=== PATIENT | male | born 1985 | race Caucasian/White ===

== ENCOUNTER 2018-01-30 22:59 | Observation (INO) ==
[2018-01-31] MEDS ORDERED: Ibuprofen 800 MG TABLET PO PRN (00:55)
--- NOTE | 2018-01-31 01:03 | Internal Med History&Physical ---
Date of Encounter: 01/31/18 Time of Encounter: 01: Internal Medicine - H&P: HPI Chief complaint: Abdominal pain Admitted From: Intrahospital Transfer Plans for Post Hospital Care: Home History of present illness: Ian Dumont is a 32-year-old man with a history of bipolar disorder and PTSD prior suicide attempts, history of illicit drug use, an active smoker and alcohol consumer coming in on transfer from [place] emergency room where he was taking 2 after having labs drawn in an urgent care center for abdominal pain and was seen to have a significant elevation in his LFTs. Over there is CT scan was done which revealed gallbladder wall edema and subtle pericholecystic infiltration as well as infiltration in the gerson hepatis region with some extension into the right anterior perirenal space and subtle infiltration suggested around the pancreatic head with minor reactive periportal lymphadenopathy. It remained unclear if this was acute cholecystitis or an acute pancreatitis however his serum lipase was within normal limits and surgery was consulted with the recommendation that he be admitted and will be seen in the morning on consultation. On arrival here the patient reports that he started feeling unwell 3 days ago with mid-abdominal pain and darker urine. He also confirms that his stool was somewhat electric power superintendent than usual but has remained constipated since then. He says he has been nauseated since then and lost his appetite. The pain has been dull but not severe enough in intensity for him to request pain medications. He denies having dysuria, fever or chills at any time. He says no one else at home is sick. Past Med Surg Social Fam HX - Past Medical History Medical history: asthma, COPD, hypertension Psychiatric history: anxiety, bipolar, prior suicide attempt, previous psychiatric hospitalization - Past Surgical History Surgical History: orthopedic, other Additional surgical history: 5 pins and wire in right shoulder on 04/28 and tendon in right finger. - Social History Smoking Status: Current every day smoker Smokeless Tobacco Status: No Alcohol use: occasionally Drug use: marijuana, prescription drug abuse Internal Medicine - H&P: Meds Fluticasone Propionate Nasal [Flonase] 50 mcg NS BID 05/28/15 [History] Lisinopril [Zestril] 5 mg PO DAILY 05/28/15 [History] Loratidine 10 mg PO DAILY 05/28/15 [History] Ibuprofen 800 mg PO 2-3XD PRN #30 tablet 07/18/17 [Rx] Lidocaine Patch [Lidoderm 5% patch] 1 each TP DAILY #7 adh..patch 07/18/17 [Rx] Albuterol Sulfate [Ventolin Hfa] 18 gm IH DAILY 01/30/18 [History] HydrOXYzine Pamoate [Vistaril] 20 mg PO DAILY 01/30/18 [History] Metoprolol [Lopressor] 25 mg PO BID 01/30/18 [History] Montelukast [Singulair] 10 mg PO DAILY 01/30/18 [History] 3 Allergy/AdvReac Type Severity Reaction Status Date / Time No Known Allergies Allergy Verified 01/30/18 20:05 All Systems PM: A 10-system review of systems was performed and is negative for pertinent findings except as documented above in the HPI. - Constitutional Exam: Vitals: Reviewed General: Well-developed white male lying comfortably in bed in no acute distress Skin: Warm and supple HEENT: Moist mucous membranes. No conjunctivae pallor. Mild scleral icterus noted around the periphery. Neck: No lymphadenopathy. No JVD. No carotid bruits. No palpable thyroid. Chest: Normal thoracic expansion. Normal breath sounds. Clear to auscultation. Heart: Normal S1 & S2; rhythmic. No rubs or murmurs. Abdomen: Non-distended, soft and non-tender to palpation. No peritoneal reaction. Liver is normal in size. Spleen is not palpable. Marie sign negative. Extremities: No clubbing, cyanosis or edema. No calf tenderness. Normal distal pulses. Neurological: Awake, alert and oriented to person, place and time. No focal deficits. Psych: Affect appropriate. - Assessment and plan (1) Abdominal pain Current Visit: Yes Status: Acute Assessment and plan: Unclear etiology; differentials include acute viral more likely (Hep A) or toxic (medication/illicit substance) hepatitis, acute cholecystitis and less likely acute pancreatitis given the normal serum lipase. Will obtain a viral hepatic panel, trend LFTs, keep NPO and obtain a liver ultrasound in the morning. Surgery and GI consults to be requested if needed. UDS is clean. IV LR to run at 200ml/hr for 2L and pain control meds ordered. With the pericholecystic fluid and wall edema, will obtain blood cultures but hold off on continuing empiric antibiotics as he presents no signs of systemic illness ( leukocytosis, fever, chills, tachycardia) and negative Ninole sign. Given the value of his LFTs, if this were due to cholecystitis he would be in severe pain and have systemic signs of illness. For now frequent abdominal exams pending liver ultrasound. Qualifiers: Abdominal location: periumbilical Qualified Code(s): R10.33 - Periumbilical pain (2) Abnormal LFTs Current Visit: Yes Status: Acute Assessment and plan: Concerning for acute hepatitis or cholecystitis. Further work up as indicated above. (3) Hypertension Current Visit: Yes Status: Chronic Assessment and plan: Resume Lisinopril when feasible. Monitor BP values for now. If needed will administer IV antihypertensive. Qualifiers: Hypertension type: essential hypertension Qualified Code(s): I10 - Essential (primary) hypertension (4) Mood disorder Current Visit: Yes Status: Chronic Assessment and plan: Patient appears clinically stable at this time. Home meds can be resumed once clear for PO. (5) DVT prophylaxis Current Visit: Yes Status: Acute Assessment and plan: Heparin subcutaneous indicated. - Time Spent With Patient Total time spent is greater than 50% in coordination of care (as documented) at patient's floor/unit and/or counseling patient: Greater than 35 minutes
[2018-01-31] MEDS: *HR* Heparin 5,000 UNIT/ML VIAL SQ SCH ×3 (06:25→21:40)
[2018-01-31 06:49] LABS: Basophils % 0.7 %; Eosinophils # 0.1 K/mcL (0.0-0.6); Eosinophils % 1.7 %; Hematocrit 47.2 % (37.5-50.1); Immature Granulocytes % 0.6 % (0-4); Lymphocytes # 1.9 K/mcL (0.6-4.6); Lymphocytes % 35.3 %; Mean Corpuscular HGB Conc 33.9 g/dL (31.6-35.5); Mean Corpuscular Volume 88.4 fL (83.0-100.0); Mean Platelet Volume 9.9 fL (9.4-12.4); Monocytes # 0.8 K/mcL (0.0-1.3); Monocytes % 14.2 %; Neutrophils # 2.6 K/mcL (1.6-8.9); Platelet Count 186 K/mcL (140-400); Red Blood Count 5.34 M/mcL (4.19-5.50); Red Cell Distribution Width 13.5 % (11.5-14.5); Segmented Neutrophils % 47.5 %
[2018-01-31 07:26] LABS: Platelet Estimate Normal (Normal); Reactive Lymphocytes Present (Not Present)
[2018-01-31 07:30] LABS: Alanine Aminotransferase > 500 Units/L (7-52); Albumin 3.1 g/dL (3.5-5.7); Albumin/Globulin Ratio 1.1 (1.1-2.2); Alkaline Phosphatase 124 Units/L (34-104); Aspartate Amino Transferase 844 Units/L (13-39); BUN/Creatinine Ratio 12 (6-26); Bilirubin,Direct 2.9 mg/dL (0.0-0.2); Bilirubin,Indirect 1.3 mg/dL (0.0-1.2); Bilirubin,Total 4.2 mg/dL (0.3-1.0); Blood Urea Nitrogen 10 mg/dL (6-20); Calcium 8.3 mg/dL (8.6-10.3); Carbon Dioxide 24 mEq/L (23-29); Chloride 110 mEq/L (98-107); Creatine Kinase 74 Units/L (30-223); Globulin 2.8 g/dL (2.4-3.5); Glucose 107 mg/dL (70-105); Osmolality,Calculated 286 (280-300); Potassium 3.8 mEq/L (3.5-5.1); Sodium 138 mEq/L (136-145); Total Protein 5.9 g/dL (6.4-8.9); eGFR For Non-African Americans > 60 (> 60)
[2018-01-31] MEDS: Loratadine 10 MG TABLET PO SCH (08:51)
[2018-01-31] MEDS: Fluticasone Propionate Nasal 50 MCG/SPRAY BOTTLE NS SCH ×2 (08:52→21:40)
[2018-01-31 10:57] LABS: Acetaminophen < 10 mcg/mL (10-20); Salicylate < 2.5 mg/dL (15.0-30.0)
[2018-01-31] MEDS ORDERED: 0.9 % Sodium Chloride 1,000 ML IVC SCH (13:15)
[2018-01-31 13:20] LABS: Amphetamine Screen,Urine Negative ng/mL (Cutoff=1000); Barbiturate Screen,Urine Negative ng/mL (Cutoff=200); Benzodiazepines Screen,Urine Negative ng/mL (Cutoff=200); Cannabinoid Screen,Urine Negative ng/mL (Cutoff = 50); Cocaine Screen,Urine Negative ng/mL (Cutoff= 300); Opiate Screen,Urine Negative ng/mL (Cutoff=300); Phencyclidine Screen,Urine Negative ng/mL (Cutoff=25)
[2018-01-31 14:16] LABS: Hepatitis B Core IgM Nonreactive (Nonreactive); Hepatitis B Surface Antigen Nonreactive (Nonreactive); Hepatitis C Virus Antibody Nonreactive (Nonreactive)
[2018-01-31 14:45] LABS: Hepatitis A Antibody IgM Reactive (Nonreactive)
--- NOTE | 2018-01-31 15:21 | Event Note ---
Date of Encounter: 01/31/18 Time of Encounter: 15:09 Pt's hepatitis panel positive for hepatitis IgM Ab. HEP A fecal-oral transmission, is usually self limiting. Will continue with IVF, antiemetic, and prn pain control. Pt strongly advised on frequent hand washing, especially after using the rest room.
[2018-01-31] MEDS: Nicotine 21 MG PATCH.TD24 TD SCH (21:40)
[2018-02-01] MEDS: *HR* Heparin 5,000 UNIT/ML VIAL SQ SCH ×2 (04:26→13:07)
[2018-02-01] MEDS ORDERED: Ondansetron 4 MG/2 ML VIAL IVP PRN (04:28)
[2018-02-01] MEDS: Loratadine 10 MG TABLET PO SCH (08:25)
[2018-02-01] MEDS: Nicotine 21 MG PATCH.TD24 TD SCH (08:25)
[2018-02-01] MEDS: Fluticasone Propionate Nasal 50 MCG/SPRAY BOTTLE NS SCH (08:26)
[2018-02-01 10:36] LABS: Basophils # 0.1 K/mcL (0.0-0.2); Basophils % 0.9 %; Eosinophils # 0.1 K/mcL (0.0-0.6); Eosinophils % 1.8 %; Hematocrit 46.3 % (37.5-50.1); Hemoglobin 15.9 g/dL (12.9-16.9); Immature Granulocytes % 0.5 % (0-4); Lymphocytes # 1.2 K/mcL (0.6-4.6); Lymphocytes % 21.4 %; Mean Corpuscular HGB Conc 34.3 g/dL (31.6-35.5); Mean Corpuscular Hemoglobin 29.8 pg (28.0-33.3); Mean Corpuscular Volume 86.7 fL (83.0-100.0); Mean Platelet Volume 9.6 fL (9.4-12.4); Monocytes # 0.8 K/mcL (0.0-1.3); Monocytes % 13.5 %; Neutrophils # 3.5 K/mcL (1.6-8.9); Platelet Count 187 K/mcL (140-400); Red Blood Count 5.34 M/mcL (4.19-5.50); Segmented Neutrophils % 61.9 %
[2018-02-01 11:06] LABS: Platelet Estimate Normal (Normal)
[2018-02-01 11:10] LABS: Alanine Aminotransferase > 500 Units/L (7-52); Albumin 3.3 g/dL (3.5-5.7); Albumin/Globulin Ratio 1.1 (1.1-2.2); Alkaline Phosphatase 145 Units/L (34-104); Aspartate Amino Transferase 956 Units/L (13-39); BUN/Creatinine Ratio 11 (6-26); Bilirubin,Total 4.7 mg/dL (0.3-1.0); Blood Urea Nitrogen 9 mg/dL (6-20); Calcium 8.8 mg/dL (8.6-10.3); Carbon Dioxide 24 mEq/L (23-29); Chloride 107 mEq/L (98-107); Glucose 137 mg/dL (70-105); Osmolality,Calculated 283 (280-300); Sodium 136 mEq/L (136-145); Total Protein 6.3 g/dL (6.4-8.9); eGFR For Non-African Americans > 60 (> 60)
[2018-02-01 11:28] VITALS: BP 118/75
--- NOTE | 2018-02-01 11:47 | Discharge Summary ---
- NOTES TO OUTPATIENT PROVIDER Notes to Outpatient Provider: PCP in 5 to 7 days Orders not resulted at time of discharge: Pending orders Pt will need follow up labs out pt 02/15/2018 CMP [Comprehensive Metabolic Panel] 03/01/2018 CMP [Comprehensive Metabolic Panel] Date of Encounter: 02/01/18 Time of Encounter: 11:43 - Discharge Diagnosis (1) Hepatitis A virus infection Priority: Primary Status: Acute Assessment and Plan: Patient IgM Ab positive. LFT's elevated on admission. Pt states symptoms much improved. Scleral icterus resolved and no notable jaundice on physical exam. Discussed case with ID and states since infection is self limiting continue with supportive care. Continue fluids and pt instructed on proper hand hygiene. If jaundice recurs and or eyes turn yellow again, pt instructed to come in to ED for further evaluation. Pt acknowledges understanding of current medical status and agreeable to treatment plan. Qualifiers: Qualified Code(s): B15.9 - Hepatitis A without hepatic coma (2) Elevated transaminase level Priority: Primary Status: Acute Assessment and Plan: Pt will need repeat lab work in 2 to 4weeks to ensure complete resolution of elevated LFT's. (3) Abdominal pain Priority: Primary Status: Acute Assessment and Plan: Resolved. Qualifiers: Abdominal location: periumbilical Qualified Code(s): R10.33 - Periumbilical pain (4) Mood disorder Priority: Secondary Status: Chronic Assessment and Plan: Resume home meds. (5) Hypertension Priority: Secondary Status: Chronic Assessment and Plan: Lopressor and Lisinopril Qualifiers: Hypertension type: essential hypertension Qualified Code(s): I10 - Essential (primary) hypertension Hospital course: Mr. Dumont is a 32 year old male with a history of bipolar disorder and PTSD prior suicide attempts, history of illicit drug use, an active smoker and alcohol consumer coming in on transfer from [place] emergency room where he was taking to after having labs drawn in an urgent care center for abdominal pain and was seen to have a significant elevation in his LFTs. Over there is CT scan was done which revealed gallbladder wall edema and subtle pericholecystic infiltration as well as infiltration in the gerson hepatis region with some extension into the right anterior perirenal space and subtle infiltration suggested around the pancreatic head with minor reactive periportal lymphadenopathy. It remained unclear if this was acute cholecystitis or an acute pancreatitis however his serum lipase was within normal limits. Results of gall bladder on CT scan and Liver US likely due to acute hepatitis infection, hence better to wait for complete resolution of Hep A prior to doing further eval with NM scan. Also pt currently completely asymptomatic. WBC 5.7 and pt afebrile. Hepatitis panel was ordered and results where positive for Hep A IgM Ab. Pt states his symptoms are completely resolved and denies abdominal pain N/V or diarrhea. He also does not appears jaundiced at this time and no notable scleral icterus. Pt is to follow up with PCP in 5 to 7 days. Since pt's abdominal pain has completely resolved, he is eating and tolerating diet, and he still has active with Hep A infection, will defer NM billiary scan to out pt PCP. Will also defer out pt surgery eval to PCP pending NM scan results. Discharge discussed with: patient, family - Time Spent with Patient Total time spent providing and/or coordinating discharge services: Greater than 30 minutes - Discharge Medications Home Medications: Fluticasone Propionate Nasal [Flonase] 50 mcg NS BID 05/28/15 [History] Lisinopril [Zestril] 5 mg PO DAILY 05/28/15 [History] Loratadine [Allergy Relief] 10 mg PO DAILY #0 05/28/15 [History] Ibuprofen 800 mg PO 2-3XD PRN #30 tablet 07/18/17 [Rx] Albuterol Sulfate [Ventolin Hfa] 18 gm IH DAILY 01/30/18 [History] HydrOXYzine Pamoate [Vistaril] 25 mg PO Q8H PRN 01/30/18 [History] Metoprolol [Lopressor] 25 mg PO BID 01/30/18 [History] Montelukast [Singulair] 10 mg PO DAILY 01/30/18 [History] raNITIdine HCl [Zantac] 150 mg PO BID 01/31/18 [History] Allergies/Adverse Reactions: 3 Allergy/AdvReac Type Severity Reaction Status Date / Time divalproex sodium Allergy Unknown unknown Verified 02/01/18 11:23 [From Depakote] risperidone [From Risperdal] Allergy Unknown unknown Verified 02/01/18 11:23 Date of admission: 01/31/18 00:54 Primary care physician: Wicho Brewster DO Discharging clinician: Teressa Banerjee Anticipated date of discharge: 02/01/18 - Constitutional Vitals: Temp Pulse Resp BP Pulse Ox 98.2 F 66 15 118/75 96 02/01/18 11:25 02/01/18 11:25 02/01/18 11:25 02/01/18 11:25 02/01/18 11:25 General appearance: Present: A&O X 3, no acute distress Exam: Vitals: Reviewed General: Well-developed white male lying comfortably in bed in no acute distress Skin: Warm and supple. No notable jaundice. HEENT: Moist mucous membranes. No conjunctivae pallor. Mild scleral icterus noted around the periphery has resolved. Neck: No lymphadenopathy. No JVD. No carotid bruits. No palpable thyroid. Chest: Normal thoracic expansion. Normal breath sounds. Clear to auscultation. Heart: Normal S1 & S2; rhythmic. No rubs or murmurs. Abdomen: Non-distended, soft and non-tender to palpation. No peritoneal reaction. Liver is normal in size. Spleen is not palpable. Marie sign negative. Extremities: No clubbing, cyanosis or edema. No calf tenderness. Normal distal pulses. Neurological: Awake, alert and oriented to person, place and time. No focal deficits. Psych: Affect appropriate. - Head Head exam: Present: atraumatic, normocephalic - Eye Eye exam: Present: PERRL, conjuntiva pink, sclera anicteric Pupils: Present: PERRL - Neck Neck exam general surgery: Present: supple, trachea midline. Absent: lymphadenopathy - Respiratory Respiratory exam: Present: CTAB. Absent: accessory muscle use, rales, rhonchi, wheezes - Cardiovascular Cardiovascular exam: Present: RRR, +S1, +S2. Absent: diastolic murmur, gallop, rubs, systolic murmur - GI/Abdominal GI/Abdominal exam: Present: normal bowel sounds, soft, no peritoneal signs. Absent: distended, tenderness - Extremities Exam Extremities exam: Present: warm, radial pulses palpable and symmetrical. Absent : calf tenderness, cyanotic, pedal edema - Neurological Exam Neurological exam: Present: CN II-XII intact, oriented X3, no focal deficits. Absent: pronater drift, facial droop, speech deficit - Skin Skin exam: Present: dry, intact - Patient Status Disposition: Home, Self-Care Condition: Good Overall status at discharge: patient is back to baseline - Discharge Instructions Follow Up With: Wicho Brewster, [Primary Care Provider] - - Diet and Activity Activity: increase activity as tolerated Diet: regular diet
== END 2018-02-01 16:26 | disposition home or self-care (01) ==
LOC: 3ANU
PROVIDERS: ADMIT Internal Medicine; ATTEND Internal Medicine